=== PATIENT | male | born 1960 ===

== ENCOUNTER 2022-11-27 01:51 | Outpatient (CLI) | payer OTHER, SELFPAY ==
[2022-11-27] MEDS: Albuterol HFA 18 GM 200 PUFF INH IH (15:56)
[2022-11-27] MEDS: Inhaler, Assist Device 1 EACH MC (15:56)
--- NOTE | 2022-12-01 07:30 | W.PFT ---
Date of service: 11/27/22 Time of Service: 14:52 Pulmonary Function Test Result Indications: COPD Interpretation Spirometry: There is moderate airflow limitation. There is a significant bronchodilator response. Lung Volumes: There is hyperinflation and air trapping Diffusion Capacity: There is decreased diffusion Airway Pressure: Increased airways resistance Impression Moderate airflow limitation with a bronchodilator response, air trapping, decreased diffusion and increased airway resistance. This is consistent with COPD with emphysema, can consider Asthma-COPD Overlap syndrome given bronchodilator response and increased airways resistance. Clinical Correlation therefore is recommended.
== END 2022-11-27 01:52 | disposition home or self-care (01) ==
LOC: RT 01:51
PROVIDERS: PCP Nurse Practitioner Family; Visit Provider Physician Assistant Surgical
DX: J44.9 Chronic obstructive pulmonary disease, unspecified (principal)
CPT/HCPCS: 94060; 94726; 94729

== ENCOUNTER 2024-12-07 03:46 | Outpatient (CLI) | payer OTHER, SELFPAY | END 2024-12-07 03:47 | disposition home or self-care (01) | LOC: RT 03:46 | PROVIDERS: PCP Nurse Practitioner Family; Visit Provider Physician Assistant Surgical | DX: J44.9 Chronic obstructive pulmonary disease, unspecified (principal) | CPT/HCPCS: 94762 ==

== ENCOUNTER → 2025-02-28 14:11 | Outpatient (BNVA) | payer MEDICARE, SELFPAY | PROVIDERS: PCP Nurse Practitioner Family; Referring Provider Nurse Practitioner Family; Visit Provider Physician Assistant Surgical | DX: J44.9 Chronic obstructive pulmonary disease, unspecified (principal); F17.210 Nicotine dependence, cigarettes, uncomplicated; I77.1 Stricture of artery; I77.810 Thoracic aortic ectasia; J96.11 Chronic respiratory failure with hypoxia | CPT/HCPCS: 99214 ==

== ENCOUNTER → 2025-05-29 13:47 | Outpatient (BNVA) | payer MEDICARE, SELFPAY | PROVIDERS: PCP Nurse Practitioner Family; Referring Provider Nurse Practitioner Family; Visit Provider Internal Medicine Pulmonary Disease | DX: J44.9 Chronic obstructive pulmonary disease, unspecified (principal); Z23 Encounter for immunization; F17.210 Nicotine dependence, cigarettes, uncomplicated; J96.11 Chronic respiratory failure with hypoxia | CPT/HCPCS: 99214; 90471; G0296; 36415; 90684 ==

== ENCOUNTER 2025-05-29 19:46 | Outpatient (REF) | payer MEDICARE, SELFPAY ==
[2025-05-29 16:15] LABS: Abs Immature Grans 0.01 10^3/uL (0.0-0.06); HCT 43.3 % (40.0-50.0); HGB 15.1 g/dL (13.5-17.5); Immature Grans % 0.1 %; MCH 33.5 pg (27.0-33.0); MCHC 34.9 % (32.0-36.0); MCV 96 fL (80-95); MPV 9.4 fL (8.0-11.0); Platelet Count 305 10^3/uL (130-400); RBC 4.51 10^6/uL (4.36-5.78); RDW 12.6 % (11.8-14.1); RDW-SD 44.2 fL; WBC 7.37 10^3/uL (4.4-10.8)
== END 2025-05-29 19:47 | disposition home or self-care (01) ==
LOC: LBN 19:46
PROVIDERS: PCP Nurse Practitioner Family; Visit Provider Internal Medicine Pulmonary Disease
DX: J44.9 Chronic obstructive pulmonary disease, unspecified (principal)
CPT/HCPCS: 85025